=== PATIENT | male | born 1970 | race Caucasian/White ===

== ENCOUNTER 2020-02-20 16:44 | Inpatient (IN) | payer MEDICAID, OTHER ==
[~2020-02-20] VITALS: Ht 167.6 cm; Wt 120.6 kg
[~2020-02-20 16:44] MED LIST: AMLO10TA7 PO; METF1000 PO; [UNRECOGNIZED DRUG - OTHER]
[2020-02-20] MEDS ORDERED: FLUO-191 PO (16:53)
[2020-02-20] MEDS ORDERED: ASPI-728 PO (16:53)
[2020-02-20] MEDS ORDERED: METO25 PO (16:53)
[2020-02-20] MEDS ORDERED: LEVO100 PO (16:53)
[2020-02-20] MEDS ORDERED: TAMS-13 PO (16:53)
[2020-02-20] MEDS ORDERED: LISI-662 PO (16:53)
[2020-02-20] MEDS ORDERED: DIVA-76 PO (16:53)
[2020-02-20] MEDS ORDERED: ROSU20TA23 PO (16:53)
[2020-02-20] MEDS ORDERED: EMPA25TA PO (16:53)
[2020-02-20] MEDS ORDERED: CETI-450 PO (16:53)
[2020-02-20] MEDS ORDERED: GABA-1181 PO (16:53)
[2020-02-20] MEDS ORDERED: OMEP20 PO (16:53)
[2020-02-20] MEDS ORDERED: TRAZ150 PO (16:53)
[2020-02-20 18:24] LABS: BASOPHILS % (AUTO) 0.8 % (0.0-2.0); EOSINOPHILS % (AUTO) 3.7 % (1.0-6.0); HEMATOCRIT 38.2 % (41-53); HEMOGLOBIN 12.9 g/dL (13.5-17.5); LYMPHOCYTES % (AUTO) 37.2 % (22.0-44.0); MEAN CORPUSCULAR HEMOGLOBIN 29.2 pg (26.0-34.0); MEAN CORPUSCULAR HGB CONC 33.8 G/dL (31.0-37.0); MEAN CORPUSCULAR VOLUME 86 fL (80-100); MONOCYTES # (AUTO) 0.5 K/uL (0.1-1.0); MONOCYTES % (AUTO) 6.3 % (2.0-9.0); NEUTROPHILS # (AUTO) 4.1 K/uL (1.8-7.7); PLATELET COUNT (AUTO) 189 K/uL (150-450); RED BLOOD CELL COUNT(AUTO) 4.42 MIL/uL (4.50-5.90); RED CELL DISTRIBUTION WIDTH 14.8 % (11.5-14.5)
[2020-02-20 18:29] LABS: ANION GAP 7 mmol/L (8-16); CALCIUM, TOTAL 8.4 mg/dL (8.8-10.5); CARBON DIOXIDE 27 mmol/L (22-29); CHLORIDE 106 mmol/L (98-107); CREATININE 1.21 mg/dL (0.60-1.30); GLOMERULAR FILTR. RATE CALC > 60 mL/min (>60); GLUCOSE,RANDOM 198 mg/dL (70-110); POTASSIUM 3.9 mmol/L (3.5-5.1); SODIUM SERUM 140 mmol/L (136-145); UREA NITROGEN, BLOOD 24 mg/dL (7-18)
[2020-02-20 18:33] LABS: APPEARANCE,URINE CLEAR (CLEAR); BILIRUBIN,URINE NEGATIVE (NEGATIVE); GLUCOSE, URINE (UA) >=1000 mg/dL (NEGATIVE); KETONES,URINE NEGATIVE (NEGATIVE); LEUKOCYTE ESTERASE ,URINE NEGATIVE (NEGATIVE); NITRATE,URINE NEGATIVE (NEGATIVE); OCCULT BLOOD,URINE NEGATIVE (NEGATIVE); PH,URINE 5.5 (5.0-8.0); PROTEIN,URINE NEGATIVE (NEGATIVE)
[2020-02-20 18:35] LABS: ALANINE AMINOTRANSFERASE 43 U/L (12-78); ALBUMIN 3.3 g/dL (3.4-5.0); ALKALINE PHOSPHATASE 116 U/L (46-116); ASPARTATE AMINOTRANSFERASE 16 U/L (15-37); TOTAL PROTEIN, SERUM 6.1 g/dL (6.4-8.2)
[2020-02-20 18:37] LABS: AMPHET/METH SCREEN,URINE NEGATIVE (NEGATIVE); BARBITURATE SCREEN, URINE NEGATIVE (NEGATIVE); BENZODIAZEPINES SCREEN,URINE NEGATIVE (NEGATIVE); CANNABINOID SCREEN,URINE NEGATIVE (NEGATIVE); COCAINE SCREEN,URINE NEGATIVE (NEGATIVE); OPIATE SCREEN,URINE NEGATIVE (NEGATIVE)
[2020-02-20 18:58] LABS: BACTERIA,URINE None Seen /HPF (None Seen); PHENCYCLIDINE SCREEN,URINE NEGATIVE (NEGATIVE); RBC,URINE None Seen /HPF (0-2); WBC,URINE None Seen /HPF (0-5)
[2020-02-20 19:06] LABS: METHADONE SCREEN, URINE NEGATIVE (NEGATIVE)
[2020-02-20] MEDS: ZOLPIDEM TARTRATE 10 MG TABLET PO PRN (23:50)
[2020-02-21 00:48] VITALS: BP 117/72
[2020-02-21 05:41] LABS: GLUCOMETER DEV NAME(LOC) 3E.I 2; GLUCOSE,POINT OF CARE 106 MG/DL (70-110)
[2020-02-21] MEDS ORDERED: GuaiFENesin/D-METHORPHAN [SUGAR-FREE] 200-20MG/10 ML SYRUP UDCUP PO PRN (08:45)
[2020-02-21] MEDS ORDERED: PETROLATUM,WHITE 28 GM JELLY TP PRN (08:45)
[2020-02-21] MEDS ORDERED: LOPERAMIDE HCL 2 MG CAPSULE PO PRN (08:45)
[2020-02-21] MEDS ORDERED: ACETAMINOPHEN 325 MG TABLET PO PRN (08:45)
[2020-02-21] MEDS ORDERED: NICOTINE 14 MG/24 HOUR PATCH TD PRN (08:45)
[2020-02-21] MEDS ORDERED: MAG HYDROX/AL HYDROX/SIMETH ES 30 ML SUSPENSION UDCUP PO PRN (08:45)
[2020-02-21] MEDS ORDERED: ONDANSETRON HCL 4 MG TABLET PO PRN (08:45)
[2020-02-21] MEDS ORDERED: CloNIDine HCL 0.1 MG TABLET PO PRN (08:45)
[2020-02-21] MEDS ORDERED: ALBUTEROL SULFATE HFA 90 MCG/PUFF 8 GM INHALER IH PRN (08:45)
[2020-02-21] MEDS ORDERED: DOCUSATE SODIUM 100 MG CAPSULE PO PRN (08:45)
[2020-02-21] MEDS ORDERED: MAGNESIUM HYDROXIDE SUSPENSION 30 ML UDCUP PO PRN (08:45)
[2020-02-21] MEDS: LEVOTHYROXINE SODIUM 100 MCG TABLET PO SCH (10:03)
[2020-02-21] MEDS: ROSUVASTATIN CALCIUM 20 MG TABLET PO SCH (10:04)
[2020-02-21] MEDS: MetFORMIN HCL 500 MG TABLET PO SCH ×2 (10:04→16:23)
[2020-02-21 10:26] VITALS: BP 93/55
[2020-02-21 10:28] VITALS: BP 93/55
[2020-02-21] MEDS: GABAPENTIN 300 MG CAPSULE PO SCH ×2 (13:19→16:23)
[2020-02-21] MEDS: DIVALPROEX SODIUM 250 MG DR TABLET PO SCH (16:22)
[2020-02-21 16:50] VITALS: BP 107/65
[2020-02-21] MEDS: ZOLPIDEM TARTRATE 10 MG TABLET PO PRN (21:23)
[2020-02-21] MEDS: IBUPROFEN 400 MG TABLET PO PRN (21:23)
[2020-02-21 22:20] VITALS: BP 118/82
[2020-02-21 22:23] VITALS: BP 124/78
[2020-02-22] MEDS ORDERED: PNEUMOCOCCAL VACCINE POLYVALENT 0.5 ML VIAL [PPSV23] IM ONE (04:00)
[2020-02-22 07:39] LABS: CHOL/HDL RATIO 2.7 (4.2-7.3)
[2020-02-22] MEDS: FLUoxetine HCL 20 MG CAPSULE PO SCH (08:46)
[2020-02-22] MEDS: DIVALPROEX SODIUM 250 MG DR TABLET PO SCH (08:46)
[2020-02-22] MEDS: GABAPENTIN 300 MG CAPSULE PO SCH ×3 (08:46→16:04)
[2020-02-22] MEDS: MetFORMIN HCL 500 MG TABLET PO SCH ×2 (08:47→16:04)
[2020-02-22] MEDS: ROSUVASTATIN CALCIUM 20 MG TABLET PO SCH (08:47)
[2020-02-22] MEDS: LEVOTHYROXINE SODIUM 100 MCG TABLET PO SCH (08:47)
[2020-02-22 08:57] VITALS: BP 127/76
[2020-02-22] MEDS: DIVALPROEX SODIUM 500 MG ER TABLET PO SCH (16:04)
[2020-02-22 17:00] VITALS: BP 150/76
[2020-02-22 21:25] VITALS: BP 136/84
[2020-02-22] MEDS: IBUPROFEN 400 MG TABLET PO PRN (21:28)
[2020-02-22] MEDS: ZOLPIDEM TARTRATE 10 MG TABLET PO PRN (21:28)
[2020-02-22 22:28] VITALS: BP 140/80
[2020-02-23 02:48] VITALS: BP 140/76
[2020-02-23] MEDS: LORazepam 2 MG TABLET PO PRN ×2 (02:48→18:47)
[2020-02-23] MEDS: MetFORMIN HCL 500 MG TABLET PO SCH ×2 (08:40→16:19)
[2020-02-23] MEDS: FLUoxetine HCL 20 MG CAPSULE PO SCH (08:40)
[2020-02-23] MEDS: DIVALPROEX SODIUM 500 MG ER TABLET PO SCH ×2 (08:40→16:19)
[2020-02-23] MEDS: LEVOTHYROXINE SODIUM 100 MCG TABLET PO SCH (08:41)
[2020-02-23] MEDS: ROSUVASTATIN CALCIUM 20 MG TABLET PO SCH (08:41)
[2020-02-23] MEDS: GABAPENTIN 300 MG CAPSULE PO SCH ×3 (08:41→16:19)
[2020-02-23 09:22] VITALS: BP 126/80
[2020-02-23 17:00] VITALS: BP 113/64
[2020-02-23] MEDS ORDERED: METF-960 PO (18:25)
[2020-02-23] MEDS: HALOPERIDOL 5 MG TABLET PO PRN (18:47)
[2020-02-23] MEDS: TraZODone HCL 50 MG TABLET PO SCH (20:12)
[2020-02-23 20:55] VITALS: BP 131/78
[2020-02-23] MEDS: IBUPROFEN 400 MG TABLET PO PRN (20:57)
[2020-02-24] MEDS: DIVALPROEX SODIUM 500 MG ER TABLET PO SCH ×2 (08:46→16:48)
[2020-02-24] MEDS: MetFORMIN HCL 500 MG TABLET PO SCH ×2 (08:46→16:48)
[2020-02-24] MEDS: GABAPENTIN 300 MG CAPSULE PO SCH ×3 (08:47→16:48)
[2020-02-24] MEDS: MULTIVITAMINS WITH MINERALS, THERAPEUTIC TABLET PO SCH (08:47)
[2020-02-24] MEDS: FLUoxetine HCL 20 MG CAPSULE PO SCH (08:47)
[2020-02-24] MEDS: LEVOTHYROXINE SODIUM 100 MCG TABLET PO SCH (08:47)
[2020-02-24] MEDS: ROSUVASTATIN CALCIUM 20 MG TABLET PO SCH (08:48)
[2020-02-24 09:11] VITALS: BP 106/52
[2020-02-24] MEDS: LORazepam 2 MG TABLET PO PRN (12:06)
[2020-02-24 19:51] VITALS: BP 116/69
[2020-02-24] MEDS: TraZODone HCL 50 MG TABLET PO SCH (20:22)
[2020-02-24] MEDS: CIPROFLOXACIN HCL 0.3% 2.5 ML OPHTHALMIC SOLUTION OS SCH (20:22)
[2020-02-25] MEDS: HALOPERIDOL 5 MG TABLET PO PRN (00:33)
[2020-02-25] MEDS: LORazepam 2 MG TABLET PO PRN ×3 (00:33→18:23)
[2020-02-25] MEDS: DIVALPROEX SODIUM 500 MG ER TABLET PO SCH ×2 (08:23→16:48)
[2020-02-25] MEDS: MetFORMIN HCL 500 MG TABLET PO SCH ×2 (08:23→16:49)
[2020-02-25] MEDS: GABAPENTIN 300 MG CAPSULE PO SCH ×3 (08:23→16:49)
[2020-02-25] MEDS: LEVOTHYROXINE SODIUM 100 MCG TABLET PO SCH (08:23)
[2020-02-25] MEDS: MULTIVITAMINS WITH MINERALS, THERAPEUTIC TABLET PO SCH (08:23)
[2020-02-25] MEDS: ROSUVASTATIN CALCIUM 20 MG TABLET PO SCH (08:24)
[2020-02-25] MEDS: FLUoxetine HCL 20 MG CAPSULE PO SCH (08:24)
[2020-02-25] MEDS: CIPROFLOXACIN HCL 0.3% 2.5 ML OPHTHALMIC SOLUTION OS SCH ×3 (08:24→20:52)
[2020-02-25 08:50] VITALS: BP 126/72
[2020-02-25 19:34] VITALS: BP 116/51
[2020-02-25] MEDS: TraZODone HCL 50 MG TABLET PO SCH (20:52)
[2020-02-26] MEDS: LORazepam 2 MG TABLET PO PRN ×2 (08:07→20:35)
[2020-02-26] MEDS: MetFORMIN HCL 500 MG TABLET PO SCH ×2 (08:07→16:22)
[2020-02-26] MEDS: MULTIVITAMINS WITH MINERALS, THERAPEUTIC TABLET PO SCH (08:08)
[2020-02-26] MEDS: FLUoxetine HCL 20 MG CAPSULE PO SCH (08:08)
[2020-02-26] MEDS: DIVALPROEX SODIUM 500 MG ER TABLET PO SCH ×2 (08:08→16:22)
[2020-02-26] MEDS: LEVOTHYROXINE SODIUM 100 MCG TABLET PO SCH (08:08)
[2020-02-26] MEDS: GABAPENTIN 300 MG CAPSULE PO SCH ×3 (08:08→16:22)
[2020-02-26] MEDS: CIPROFLOXACIN HCL 0.3% 2.5 ML OPHTHALMIC SOLUTION OS SCH ×3 (08:09→20:26)
[2020-02-26] MEDS: ROSUVASTATIN CALCIUM 20 MG TABLET PO SCH (08:09)
[2020-02-26 08:54] VITALS: BP 109/80
[2020-02-26 17:14] VITALS: BP 119/63
[2020-02-26] MEDS: TraZODone HCL 50 MG TABLET PO SCH (20:26)
[2020-02-27] MEDS: CIPROFLOXACIN HCL 0.3% 2.5 ML OPHTHALMIC SOLUTION OS SCH (08:04)
[2020-02-27] MEDS: FLUoxetine HCL 20 MG CAPSULE PO SCH (08:04)
[2020-02-27] MEDS: MULTIVITAMINS WITH MINERALS, THERAPEUTIC TABLET PO SCH (08:04)
[2020-02-27] MEDS: MetFORMIN HCL 500 MG TABLET PO SCH (08:04)
[2020-02-27] MEDS: LEVOTHYROXINE SODIUM 100 MCG TABLET PO SCH (08:04)
[2020-02-27] MEDS: GABAPENTIN 300 MG CAPSULE PO SCH ×2 (08:04→12:09)
[2020-02-27] MEDS: DIVALPROEX SODIUM 500 MG ER TABLET PO SCH (08:04)
[2020-02-27] MEDS: ROSUVASTATIN CALCIUM 20 MG TABLET PO SCH (08:05)
[2020-02-27] MEDS: LORazepam 2 MG TABLET PO PRN (08:10)
[2020-02-27 09:05] VITALS: BP 140/77
[2020-02-27] MEDS ORDERED: DIVA500T52 PO (12:46)
[2020-02-27] MEDS ORDERED: TRAZ-252 PO (12:46)
[2020-02-27] MEDS ORDERED: MULT-1239 PO (12:53)
[2020-02-27] MEDS ORDERED: METF-960 PO (13:03)
[2020-02-27] MEDS ORDERED: CILO2.5OS OS (13:03)
== END 2020-02-27 11:10 | disposition home or self-care (01) | DRG 885 ==
LOC: EMS 16:46 → 3EI 21:37 → EMS 02-21 00:06
PROVIDERS: ADMIT Psychiatry & Neurology Psychiatry; ATTEND Psychiatry & Neurology Psychiatry
DX: F25.1 Schizoaffective disorder, depressive type (principal); R45.851 Suicidal ideations; E78.00 Pure hypercholesterolemia, unspecified; E78.5 Hyperlipidemia, unspecified; F17.200 Nicotine dependence, unspecified, uncomplicated; F31.9 Bipolar disorder, unspecified; F41.0 Panic disorder [episodic paroxysmal anxiety]; E66.9 Obesity, unspecified; E11.9 Type 2 diabetes mellitus without complications; E03.9 Hypothyroidism, unspecified; G47.33 Obstructive sleep apnea (adult) (pediatric); I10 Essential (primary) hypertension; J45.909 Unspecified asthma, uncomplicated; K59.00 Constipation, unspecified; M10.9 Gout, unspecified; N40.0 Benign prostatic hyperplasia without lower urinary tract symptoms; Z59.0 Homelessness; Z79.899 Other long term (current) drug therapy; Z91.5 Personal history of self-harm
CPT/HCPCS: G0480

== ENCOUNTER 2020-10-19 22:40 | Inpatient (IN) | payer MEDICAID, OTHER ==
[~2020-10-19] VITALS: Ht 167.6 cm; Wt 114.4 kg
[~2020-10-19 22:40] MED LIST changes: -AMLO10TA7 PO; +CILO2.5OS OS; +DIVA-80 PO; +FLUO-191 PO; +GABA-1181 PO; +LEVO100 PO; +METF-960 PO; -METF1000 PO; +MULT-1239 PO; +ROSU20TA23 PO; +TRAZ-252 PO; -[UNRECOGNIZED DRUG - OTHER]
[2020-10-19 23:51] LABS: BASOPHILS % (AUTO) 0.7 % (0.0-2.0); EOSINOPHILS % (AUTO) 11.1 % (1.0-6.0); HEMATOCRIT 42.7 % (41-53); HEMOGLOBIN 14.3 g/dL (13.5-17.5); LYMPHOCYTES # (AUTO) 3.3 K/uL (1.0-4.8); LYMPHOCYTES % (AUTO) 34.2 % (22.0-44.0); MEAN CORPUSCULAR HEMOGLOBIN 29.4 pg (26.0-34.0); MEAN CORPUSCULAR HGB CONC 33.5 G/dL (31.0-37.0); MEAN CORPUSCULAR VOLUME 88 fL (80-100); MONOCYTES # (AUTO) 0.6 K/uL (0.1-1.0); MONOCYTES % (AUTO) 6.5 % (2.0-9.0); NEUTROPHILS # (AUTO) 4.5 K/uL (1.8-7.7); NEUTROPHILS % (AUTO) 47.5 % (40.0-70.0); PLATELET COUNT (AUTO) 164 K/uL (150-450); RED BLOOD CELL COUNT(AUTO) 4.87 MIL/uL (4.50-5.90); RED CELL DISTRIBUTION WIDTH 13.9 % (11.5-14.5)
[2020-10-20 00:01] LABS: ANION GAP 15 mmol/L (8-16); CALCIUM, TOTAL 8.6 mg/dL (8.8-10.5); CARBON DIOXIDE 20 mmol/L (22-29); CHLORIDE 107 mmol/L (98-107); CREATININE 1.25 mg/dL (0.60-1.30); GLOMERULAR FILTR. RATE CALC > 60 mL/min (>60); GLUCOSE,RANDOM 111 mg/dL (70-110); SODIUM SERUM 142 mmol/L (136-145); UREA NITROGEN, BLOOD 18 mg/dL (7-18)
[2020-10-20 00:07] LABS: ALANINE AMINOTRANSFERASE 36 U/L (12-78); ALBUMIN 3.4 g/dL (3.4-5.0); ALKALINE PHOSPHATASE 120 U/L (46-116); ASPARTATE AMINOTRANSFERASE 21 U/L (15-37); BILIRUBIN,TOTAL 0.8 mg/dL (0.1-1.0); TOTAL PROTEIN, SERUM 6.7 g/dL (6.4-8.2)
[2020-10-20 00:25] LABS: ACETAMINOPHEN < 2 mcg/mL (10-30); SALICYLATE < 2.8 mg/dL (2.8-20.0)
[2020-10-20] MEDS ORDERED: SODIUM CHLORIDE 0.9% 1,000 ML IV ONE ×3 (01:00→11:45)
[2020-10-20 01:26] LABS: GLUCOSE,POINT OF CARE 100 MG/DL (70-110)
[2020-10-20 02:11] LABS: LACTIC ACID 3.1 mmol/L (0.4-2.0)
[2020-10-20 03:45] LABS: GLUCOSE,POINT OF CARE 91 MG/DL (70-110)
[2020-10-20 04:37] LABS: CALCIUM, TOTAL 8.7 mg/dL (8.8-10.5); CREATININE 1.3 mg/dL (0.60-1.30)
[2020-10-20 04:43] LABS: BILIRUBIN,TOTAL 0.8 mg/dL (0.1-1.0); TOTAL PROTEIN, SERUM 6.4 g/dL (6.4-8.2)
[2020-10-20 05:21] LABS: AMPHET/METH SCREEN,URINE NEGATIVE (NEGATIVE); BARBITURATE SCREEN, URINE NEGATIVE (NEGATIVE); BENZODIAZEPINES SCREEN,URINE NEGATIVE (NEGATIVE); CANNABINOID SCREEN,URINE NEGATIVE (NEGATIVE); COCAINE SCREEN,URINE NEGATIVE (NEGATIVE); METHADONE SCREEN, URINE NEGATIVE (NEGATIVE); OPIATE SCREEN,URINE NEGATIVE (NEGATIVE)
[2020-10-20 05:23] LABS: PHENCYCLIDINE SCREEN,URINE NEGATIVE (NEGATIVE)
[2020-10-20 07:00] LABS: COVID AG,FIA SOURCE NASOPHARYNGEAL
[2020-10-20 09:23] LABS: GLUCOSE,POINT OF CARE 72 MG/DL (70-110)
[2020-10-20 10:03] LABS: ANION GAP 8 mmol/L (8-16); CALCIUM, TOTAL 7.5 mg/dL (8.8-10.5); CARBON DIOXIDE 25 mmol/L (22-29); CHLORIDE 109 mmol/L (98-107); CREATININE 1.25 mg/dL (0.60-1.30); GLOMERULAR FILTR. RATE CALC > 60 mL/min (>60); GLUCOSE,RANDOM 77 mg/dL (70-110); POTASSIUM 4.6 mmol/L (3.5-5.1); SODIUM SERUM 142 mmol/L (136-145); UREA NITROGEN, BLOOD 16 mg/dL (7-18)
[2020-10-20 10:09] LABS: ALANINE AMINOTRANSFERASE 29 U/L (12-78); ALBUMIN 2.9 g/dL (3.4-5.0); ALKALINE PHOSPHATASE 107 U/L (46-116); ASPARTATE AMINOTRANSFERASE 18 U/L (15-37); BILIRUBIN,TOTAL 0.8 mg/dL (0.1-1.0); TOTAL PROTEIN, SERUM 5.8 g/dL (6.4-8.2)
[2020-10-20 15:25] LABS: GLUCOSE,POINT OF CARE 63 MG/DL (70-110)
[2020-10-20 15:45] LABS: GLUCOSE,POINT OF CARE 86 MG/DL (70-110)
[2020-10-20 20:38] VITALS: BP 142/96
[2020-10-21] MEDS: LEVOTHYROXINE SODIUM 100 MCG TABLET PO SCH (07:01)
[2020-10-21 07:22] LABS: CHOL/HDL RATIO 2.4 (4.2-7.3)
[2020-10-21] MEDS ORDERED: DOCUSATE SODIUM 100 MG CAPSULE PO PRN (07:45)
[2020-10-21] MEDS ORDERED: GuaiFENesin/D-METHORPHAN [SUGAR-FREE] 200-20MG/10 ML SYRUP UDCUP PO PRN (07:45)
[2020-10-21] MEDS ORDERED: ACETAMINOPHEN 325 MG TABLET PO PRN (07:45)
[2020-10-21] MEDS ORDERED: CloNIDine HCL 0.1 MG TABLET PO PRN (07:45)
[2020-10-21] MEDS ORDERED: MAGNESIUM HYDROXIDE SUSPENSION 30 ML UDCUP PO PRN (07:45)
[2020-10-21] MEDS ORDERED: PETROLATUM,WHITE 28 GM JELLY TP PRN (07:45)
[2020-10-21] MEDS ORDERED: ALBUTEROL SULFATE HFA 90 MCG/PUFF 8 GM INHALER IH PRN (07:45)
[2020-10-21] MEDS ORDERED: NICOTINE 14 MG/24 HOUR PATCH TD PRN (07:45)
[2020-10-21] MEDS ORDERED: MAG HYDROX/AL HYDROX/SIMETH ES 30 ML SUSPENSION UDCUP PO PRN (07:45)
[2020-10-21] MEDS ORDERED: ONDANSETRON HCL 4 MG TABLET PO PRN (07:45)
[2020-10-21] MEDS ORDERED: LOPERAMIDE HCL 2 MG CAPSULE PO PRN (07:45)
[2020-10-21] MEDS: MULTIVITAMINS WITH MINERALS, THERAPEUTIC TABLET PO SCH (08:34)
[2020-10-21] MEDS: MetFORMIN HCL 500 MG TABLET PO SCH ×2 (08:34→16:19)
[2020-10-21] MEDS: ROSUVASTATIN CALCIUM 20 MG TABLET PO SCH (08:34)
[2020-10-21 09:22] VITALS: BP 139/80
[2020-10-21] MEDS ORDERED: LISI-618 PO (11:30)
[2020-10-21] MEDS ORDERED: METO-391 PO (11:30)
[2020-10-21] MEDS ORDERED: EMPA25TA PO (11:30)
[2020-10-21] MEDS ORDERED: DULA3PEN SQ (11:30)
[2020-10-21] MEDS: GABAPENTIN 300 MG CAPSULE PO SCH ×2 (12:02→16:18)
[2020-10-21] MEDS: DIVALPROEX SODIUM 500 MG ER TABLET PO SCH ×2 (12:02→20:24)
[2020-10-21] MEDS: FLUoxetine HCL 20 MG CAPSULE PO SCH (12:02)
[2020-10-21 16:00] VITALS: BP 122/76
[2020-10-21] MEDS ORDERED: DEXTROSE 50%-WATER 25 GM/50 ML SYRINGE IVP PRN (16:00)
[2020-10-21 17:03] LABS: GLUCOMETER DEV NAME(LOC) 3E.I 2; GLUCOSE,POINT OF CARE 90 MG/DL (70-110)
[2020-10-21] MEDS: TraZODone HCL 50 MG TABLET PO SCH (20:24)
[2020-10-21 20:39] LABS: GLUCOMETER DEV NAME(LOC) 3E.I 2; GLUCOSE,POINT OF CARE 97 MG/DL (70-110)
[2020-10-21] MEDS: ZOLPIDEM TARTRATE 10 MG TABLET PO PRN (22:48)
[2020-10-22 03:00] LABS: APPEARANCE,URINE CLEAR (CLEAR); BILIRUBIN,URINE NEGATIVE (NEGATIVE); GLUCOSE, URINE (UA) >=1000 mg/dL (NEGATIVE); KETONES,URINE 15 mg/dL (NEGATIVE); LEUKOCYTE ESTERASE ,URINE NEGATIVE (NEGATIVE); NITRATE,URINE NEGATIVE (NEGATIVE); OCCULT BLOOD,URINE NEGATIVE (NEGATIVE); PROTEIN,URINE POS 1+ (NEGATIVE)
[2020-10-22 03:22] LABS: BACTERIA,URINE Rare /HPF (None Seen); WBC,URINE 0-2 /HPF (0-5); YEAST,URINE Few /HPF (None Seen)
[2020-10-22 03:23] LABS: RBC,URINE None Seen /HPF (0-2); SQUAMOUS EPITHELIAL CELL,UR Rare /LPF (None Seen)
[2020-10-22 04:51] LABS: AMPHET/METH SCREEN,URINE NEGATIVE (NEGATIVE); BARBITURATE SCREEN, URINE NEGATIVE (NEGATIVE); BENZODIAZEPINES SCREEN,URINE NEGATIVE (NEGATIVE); CANNABINOID SCREEN,URINE NEGATIVE (NEGATIVE); COCAINE SCREEN,URINE NEGATIVE (NEGATIVE); METHADONE SCREEN, URINE NEGATIVE (NEGATIVE); OPIATE SCREEN,URINE NEGATIVE (NEGATIVE)
[2020-10-22 05:05] LABS: PHENCYCLIDINE SCREEN,URINE NEGATIVE (NEGATIVE)
[2020-10-22 06:42] LABS: GLUCOMETER DEV NAME(LOC) 3E.I 2; GLUCOSE,POINT OF CARE 83 MG/DL (70-110)
[2020-10-22] MEDS: LEVOTHYROXINE SODIUM 100 MCG TABLET PO SCH (06:44)
[2020-10-22 09:36] VITALS: BP 139/83
[2020-10-22] MEDS: ROSUVASTATIN CALCIUM 20 MG TABLET PO SCH (09:44)
[2020-10-22] MEDS: GABAPENTIN 300 MG CAPSULE PO SCH ×3 (09:44→16:35)
[2020-10-22] MEDS: DIVALPROEX SODIUM 500 MG ER TABLET PO SCH ×2 (09:44→20:44)
[2020-10-22] MEDS: FLUoxetine HCL 20 MG CAPSULE PO SCH (09:45)
[2020-10-22] MEDS: MULTIVITAMINS WITH MINERALS, THERAPEUTIC TABLET PO SCH (09:45)
[2020-10-22] MEDS: MetFORMIN HCL 500 MG TABLET PO SCH ×2 (09:47→17:07)
[2020-10-22 11:49] LABS: GLUCOMETER DEV NAME(LOC) 3E.I 2; GLUCOSE,POINT OF CARE 106 MG/DL (70-110)
[2020-10-22 16:25] VITALS: BP 108/70
[2020-10-22 17:22] LABS: GLUCOMETER DEV NAME(LOC) 3E.I 2; GLUCOSE,POINT OF CARE 107 MG/DL (70-110)
[2020-10-22] MEDS: TraZODone HCL 50 MG TABLET PO SCH (20:44)
[2020-10-22] MEDS: IBUPROFEN 400 MG TABLET PO PRN (20:49)
[2020-10-22 20:59] LABS: GLUCOMETER DEV NAME(LOC) 3E.I 2; GLUCOSE,POINT OF CARE 109 MG/DL (70-110)
[2020-10-22] MEDS: ZOLPIDEM TARTRATE 10 MG TABLET PO PRN (22:15)
[2020-10-23 06:21] VITALS: BP 124/77
[2020-10-23] MEDS: IBUPROFEN 400 MG TABLET PO PRN ×2 (06:25→21:40)
[2020-10-23] MEDS: LEVOTHYROXINE SODIUM 100 MCG TABLET PO SCH (06:25)
[2020-10-23 06:40] LABS: GLUCOMETER DEV NAME(LOC) 3E.I 2; GLUCOSE,POINT OF CARE 73 MG/DL (70-110)
[2020-10-23 08:03] VITALS: BP 104/65
[2020-10-23] MEDS: MetFORMIN HCL 500 MG TABLET PO SCH ×2 (08:52→16:32)
[2020-10-23] MEDS: ROSUVASTATIN CALCIUM 20 MG TABLET PO SCH (08:52)
[2020-10-23] MEDS: MULTIVITAMINS WITH MINERALS, THERAPEUTIC TABLET PO SCH (08:52)
[2020-10-23] MEDS: GABAPENTIN 300 MG CAPSULE PO SCH ×3 (08:52→16:32)
[2020-10-23] MEDS: DIVALPROEX SODIUM 500 MG ER TABLET PO SCH ×2 (08:53→21:19)
[2020-10-23] MEDS: FLUoxetine HCL 20 MG CAPSULE PO SCH (08:58)
[2020-10-23 11:33] LABS: GLUCOMETER DEV NAME(LOC) 3EX.; GLUCOSE,POINT OF CARE 94 MG/DL (70-110)
[2020-10-23 16:00] VITALS: BP 113/66
[2020-10-23] MEDS: LORazepam 2 MG TABLET PO PRN (16:32)
[2020-10-23 16:47] LABS: GLUCOMETER DEV NAME(LOC) 3EX.; GLUCOSE,POINT OF CARE 134 MG/DL (70-110)
[2020-10-23] MEDS: TraZODone HCL 50 MG TABLET PO SCH (21:34)
[2020-10-23 21:40] VITALS: BP 154/85
[2020-10-23] MEDS: ZOLPIDEM TARTRATE 10 MG TABLET PO PRN (21:42)
[2020-10-23 22:20] LABS: GLUCOMETER DEV NAME(LOC) 3EX.; GLUCOSE,POINT OF CARE 80 MG/DL (70-110)
[2020-10-24 06:30] LABS: GLUCOMETER DEV NAME(LOC) 3EX.; GLUCOSE,POINT OF CARE 115 MG/DL (70-110)
[2020-10-24] MEDS: LEVOTHYROXINE SODIUM 100 MCG TABLET PO SCH (06:59)
[2020-10-24 08:22] VITALS: BP 109/67
[2020-10-24] MEDS: MULTIVITAMINS WITH MINERALS, THERAPEUTIC TABLET PO SCH (09:21)
[2020-10-24] MEDS: MetFORMIN HCL 500 MG TABLET PO SCH ×2 (09:21→17:18)
[2020-10-24] MEDS: GABAPENTIN 300 MG CAPSULE PO SCH ×3 (09:21→17:18)
[2020-10-24] MEDS: DIVALPROEX SODIUM 500 MG ER TABLET PO SCH ×2 (09:22→20:41)
[2020-10-24] MEDS: ROSUVASTATIN CALCIUM 20 MG TABLET PO SCH (09:22)
[2020-10-24] MEDS: FLUoxetine HCL 20 MG CAPSULE PO SCH (09:22)
[2020-10-24 11:24] LABS: GLUCOMETER DEV NAME(LOC) 3EX.; GLUCOSE,POINT OF CARE 98 MG/DL (70-110)
[2020-10-24] MEDS: LORazepam 2 MG TABLET PO PRN (12:00)
[2020-10-24 16:14] VITALS: BP 116/78
[2020-10-24 16:57] LABS: GLUCOMETER DEV NAME(LOC) 3EX.; GLUCOSE,POINT OF CARE 151 MG/DL (70-110)
[2020-10-24] MEDS: INSULIN LISPRO 100 UNITS/ML SQ PRN (17:15)
[2020-10-24 20:41] LABS: GLUCOMETER DEV NAME(LOC) 3EX.; GLUCOSE,POINT OF CARE 140 MG/DL (70-110)
[2020-10-24] MEDS: TraZODone HCL 50 MG TABLET PO SCH (20:41)
[2020-10-24 22:29] VITALS: BP 139/87
[2020-10-24] MEDS: ZOLPIDEM TARTRATE 10 MG TABLET PO PRN (22:32)
[2020-10-24] MEDS: IBUPROFEN 400 MG TABLET PO PRN (22:33)
[2020-10-25 03:01] VITALS: BP 138/91
[2020-10-25] MEDS: LORazepam 2 MG TABLET PO PRN ×2 (03:03→22:50)
[2020-10-25] MEDS: INSULIN LISPRO 100 UNITS/ML SQ PRN ×3 (06:41→21:29)
[2020-10-25] MEDS: LEVOTHYROXINE SODIUM 100 MCG TABLET PO SCH (06:41)
[2020-10-25 06:42] LABS: GLUCOMETER DEV NAME(LOC) 3EX.; GLUCOSE,POINT OF CARE 122 MG/DL (70-110)
[2020-10-25 08:55] VITALS: BP 138/77
[2020-10-25] MEDS: FLUoxetine HCL 20 MG CAPSULE PO SCH (08:57)
[2020-10-25] MEDS: MULTIVITAMINS WITH MINERALS, THERAPEUTIC TABLET PO SCH (08:57)
[2020-10-25] MEDS: GABAPENTIN 300 MG CAPSULE PO SCH ×3 (08:57→16:55)
[2020-10-25] MEDS: DIVALPROEX SODIUM 500 MG ER TABLET PO SCH ×2 (08:58→20:15)
[2020-10-25] MEDS: MetFORMIN HCL 500 MG TABLET PO SCH ×2 (08:58→16:55)
[2020-10-25] MEDS: ROSUVASTATIN CALCIUM 20 MG TABLET PO SCH (08:58)
[2020-10-25] MEDS: IBUPROFEN 400 MG TABLET PO PRN (08:59)
[2020-10-25 11:20] LABS: GLUCOMETER DEV NAME(LOC) 3E.I 2; GLUCOSE,POINT OF CARE 98 MG/DL (70-110)
[2020-10-25 16:10] VITALS: BP 120/98
[2020-10-25 17:20] LABS: COVID AG,FIA SOURCE NASOPHARYNGEAL
[2020-10-25 17:25] LABS: GLUCOMETER DEV NAME(LOC) 3EX.; GLUCOSE,POINT OF CARE 162 MG/DL (70-110)
[2020-10-25] MEDS: TraZODone HCL 50 MG TABLET PO SCH (20:15)
[2020-10-25 21:45] LABS: GLUCOMETER DEV NAME(LOC) 3E.I 2; GLUCOSE,POINT OF CARE 158 MG/DL (70-110)
[2020-10-25] MEDS: ZOLPIDEM TARTRATE 10 MG TABLET PO PRN (22:50)
[2020-10-26 05:33] LABS: GLUCOMETER DEV NAME(LOC) 3E.I 2; GLUCOSE,POINT OF CARE 95 MG/DL (70-110)
[2020-10-26] MEDS: LEVOTHYROXINE SODIUM 100 MCG TABLET PO SCH (06:50)
[2020-10-26] MEDS: INSULIN LISPRO 100 UNITS/ML SQ PRN (06:51)
[2020-10-26 08:17] VITALS: BP 131/85
[2020-10-26] MEDS: FLUoxetine HCL 20 MG CAPSULE PO SCH (08:44)
[2020-10-26] MEDS: ROSUVASTATIN CALCIUM 20 MG TABLET PO SCH (08:44)
[2020-10-26] MEDS: GABAPENTIN 300 MG CAPSULE PO SCH ×3 (08:45→16:02)
[2020-10-26] MEDS: MULTIVITAMINS WITH MINERALS, THERAPEUTIC TABLET PO SCH (08:45)
[2020-10-26] MEDS: DIVALPROEX SODIUM 500 MG ER TABLET PO SCH ×2 (08:45→20:29)
[2020-10-26] MEDS: MetFORMIN HCL 500 MG TABLET PO SCH ×2 (08:46→16:02)
[2020-10-26] MEDS: LORazepam 2 MG TABLET PO PRN (11:51)
[2020-10-26 12:15] LABS: GLUCOMETER DEV NAME(LOC) 3E.I 2; GLUCOSE,POINT OF CARE 105 MG/DL (70-110)
[2020-10-26 16:27] VITALS: BP 121/71
[2020-10-26 16:56] LABS: GLUCOMETER DEV NAME(LOC) 3EX.; GLUCOSE,POINT OF CARE 121 MG/DL (70-110)
[2020-10-26] MEDS: TraZODone HCL 50 MG TABLET PO SCH (20:29)
[2020-10-26 20:51] LABS: GLUCOMETER DEV NAME(LOC) 3EX.; GLUCOSE,POINT OF CARE 105 MG/DL (70-110)
[2020-10-27 06:14] LABS: GLUCOMETER DEV NAME(LOC) 3EX.; GLUCOSE,POINT OF CARE 142 MG/DL (70-110)
[2020-10-27] MEDS: LEVOTHYROXINE SODIUM 100 MCG TABLET PO SCH (06:27)
[2020-10-27 08:59] VITALS: BP 147/88
[2020-10-27] MEDS: FLUoxetine HCL 20 MG CAPSULE PO SCH (09:46)
[2020-10-27] MEDS: ROSUVASTATIN CALCIUM 20 MG TABLET PO SCH (09:46)
[2020-10-27] MEDS: LORazepam 2 MG TABLET PO PRN (09:46)
[2020-10-27] MEDS: GABAPENTIN 300 MG CAPSULE PO SCH ×3 (09:46→16:07)
[2020-10-27] MEDS: MetFORMIN HCL 500 MG TABLET PO SCH ×2 (09:47→16:07)
[2020-10-27] MEDS: DIVALPROEX SODIUM 500 MG ER TABLET PO SCH ×2 (09:47→20:03)
[2020-10-27] MEDS: MULTIVITAMINS WITH MINERALS, THERAPEUTIC TABLET PO SCH (09:47)
[2020-10-27 09:54] VITALS: BP 128/74
[2020-10-27] MEDS: IBUPROFEN 400 MG TABLET PO PRN (09:54)
[2020-10-27] MEDS: BuPROPion HCL XL 150 MG ER TABLET PO SCH (10:32)
[2020-10-27 10:54] VITALS: BP 156/109
[2020-10-27 11:56] LABS: GLUCOMETER DEV NAME(LOC) 3E.I 2; GLUCOSE,POINT OF CARE 120 MG/DL (70-110)
[2020-10-27 16:19] VITALS: BP 136/87
[2020-10-27 16:58] LABS: GLUCOMETER DEV NAME(LOC) 3EX.; GLUCOSE,POINT OF CARE 128 MG/DL (70-110)
[2020-10-27] MEDS: TraZODone HCL 50 MG TABLET PO SCH (20:03)
[2020-10-27] MEDS: INSULIN LISPRO 100 UNITS/ML SQ PRN (20:43)
[2020-10-27 20:49] LABS: GLUCOMETER DEV NAME(LOC) 3EX.; GLUCOSE,POINT OF CARE 142 MG/DL (70-110)
[2020-10-27] MEDS: ZOLPIDEM TARTRATE 10 MG TABLET PO PRN (22:07)
[2020-10-28 00:30] VITALS: BP 141/86
[2020-10-28] MEDS: HALOPERIDOL 5 MG TABLET PO PRN (00:32)
[2020-10-28] MEDS: LORazepam 2 MG TABLET PO PRN ×2 (00:32→10:27)
[2020-10-28 05:54] LABS: GLUCOMETER DEV NAME(LOC) 3EX.; GLUCOSE,POINT OF CARE 99 MG/DL (70-110)
[2020-10-28] MEDS: LEVOTHYROXINE SODIUM 100 MCG TABLET PO SCH (06:27)
[2020-10-28] MEDS: GABAPENTIN 300 MG CAPSULE PO SCH ×3 (08:12→16:41)
[2020-10-28] MEDS: BuPROPion HCL XL 150 MG ER TABLET PO SCH (08:12)
[2020-10-28] MEDS: FLUoxetine HCL 20 MG CAPSULE PO SCH (08:12)
[2020-10-28] MEDS: ROSUVASTATIN CALCIUM 20 MG TABLET PO SCH (08:12)
[2020-10-28] MEDS: MetFORMIN HCL 500 MG TABLET PO SCH ×2 (08:12→16:41)
[2020-10-28] MEDS: MULTIVITAMINS WITH MINERALS, THERAPEUTIC TABLET PO SCH (08:12)
[2020-10-28] MEDS: DIVALPROEX SODIUM 500 MG ER TABLET PO SCH ×2 (08:12→20:58)
[2020-10-28 08:53] VITALS: BP 113/75
[2020-10-28 11:13] LABS: GLUCOMETER DEV NAME(LOC) 3E.I 2; GLUCOSE,POINT OF CARE 82 MG/DL (70-110)
[2020-10-28] MEDS: INSULIN LISPRO 100 UNITS/ML SQ PRN ×3 (11:24→20:57)
[2020-10-28 16:00] VITALS: BP 143/77
[2020-10-28 16:52] LABS: GLUCOMETER DEV NAME(LOC) 3E.I 2; GLUCOSE,POINT OF CARE 135 MG/DL (70-110)
[2020-10-28] MEDS: TraZODone HCL 50 MG TABLET PO SCH (20:58)
[2020-10-28] MEDS: ZOLPIDEM TARTRATE 10 MG TABLET PO PRN (21:01)
[2020-10-28 21:07] LABS: GLUCOMETER DEV NAME(LOC) 3E.I 2; GLUCOSE,POINT OF CARE 187 MG/DL (70-110)
[2020-10-29 03:25] VITALS: BP 111/69
[2020-10-29] MEDS: LORazepam 2 MG TABLET PO PRN ×4 (03:26→23:58)
[2020-10-29] MEDS: LEVOTHYROXINE SODIUM 100 MCG TABLET PO SCH (06:39)
[2020-10-29 06:49] LABS: GLUCOMETER DEV NAME(LOC) 3E.I 2; GLUCOSE,POINT OF CARE 99 MG/DL (70-110)
[2020-10-29 08:51] VITALS: BP 138/84
[2020-10-29] MEDS: DIVALPROEX SODIUM 500 MG ER TABLET PO SCH ×2 (09:02→20:34)
[2020-10-29] MEDS: BuPROPion HCL XL 150 MG ER TABLET PO SCH (09:02)
[2020-10-29] MEDS: FLUoxetine HCL 20 MG CAPSULE PO SCH (09:02)
[2020-10-29] MEDS: MULTIVITAMINS WITH MINERALS, THERAPEUTIC TABLET PO SCH (09:02)
[2020-10-29] MEDS: ROSUVASTATIN CALCIUM 20 MG TABLET PO SCH (09:02)
[2020-10-29] MEDS: GABAPENTIN 300 MG CAPSULE PO SCH ×3 (09:02→16:34)
[2020-10-29] MEDS: MetFORMIN HCL 500 MG TABLET PO SCH ×2 (09:02→17:31)
[2020-10-29 11:27] LABS: GLUCOMETER DEV NAME(LOC) 3E.I 2; GLUCOSE,POINT OF CARE 169 MG/DL (70-110)
[2020-10-29] MEDS: INSULIN LISPRO 100 UNITS/ML SQ PRN ×2 (11:51→20:46)
[2020-10-29 16:45] LABS: GLUCOMETER DEV NAME(LOC) 3E.I 2; GLUCOSE,POINT OF CARE 129 MG/DL (70-110)
[2020-10-29 18:02] VITALS: BP 111/70
[2020-10-29] MEDS: ZOLPIDEM TARTRATE 10 MG TABLET PO PRN (20:35)
[2020-10-29] MEDS: TraZODone HCL 50 MG TABLET PO SCH (20:38)
[2020-10-29 21:57] LABS: GLUCOMETER DEV NAME(LOC) 3E.I 2; GLUCOSE,POINT OF CARE 179 MG/DL (70-110)
[2020-10-30 06:14] LABS: GLUCOMETER DEV NAME(LOC) 3E.I 2; GLUCOSE,POINT OF CARE 118 MG/DL (70-110)
[2020-10-30] MEDS: LEVOTHYROXINE SODIUM 100 MCG TABLET PO SCH (06:35)
[2020-10-30] MEDS: INSULIN LISPRO 100 UNITS/ML SQ PRN ×2 (06:36→20:33)
[2020-10-30 08:56] VITALS: BP 106/78
[2020-10-30] MEDS: GABAPENTIN 300 MG CAPSULE PO SCH ×3 (09:03→16:14)
[2020-10-30] MEDS: MetFORMIN HCL 500 MG TABLET PO SCH ×2 (09:03→17:09)
[2020-10-30] MEDS: MULTIVITAMINS WITH MINERALS, THERAPEUTIC TABLET PO SCH (09:03)
[2020-10-30] MEDS: ROSUVASTATIN CALCIUM 20 MG TABLET PO SCH (09:03)
[2020-10-30] MEDS: DIVALPROEX SODIUM 500 MG ER TABLET PO SCH ×2 (09:03→20:16)
[2020-10-30] MEDS: FLUoxetine HCL 20 MG CAPSULE PO SCH (09:03)
[2020-10-30] MEDS: BuPROPion HCL XL 150 MG ER TABLET PO SCH (09:03)
[2020-10-30 11:43] LABS: GLUCOMETER DEV NAME(LOC) 3E.I 2; GLUCOSE,POINT OF CARE 88 MG/DL (70-110)
[2020-10-30 14:15] VITALS: BP 114/57
[2020-10-30] MEDS: IBUPROFEN 400 MG TABLET PO PRN (14:16)
[2020-10-30] MEDS: LORazepam 2 MG TABLET PO PRN (14:17)
[2020-10-30 15:16] VITALS: BP 116/77
[2020-10-30 16:00] VITALS: BP 107/69
[2020-10-30 16:45] LABS: GLUCOMETER DEV NAME(LOC) 3E.I 2; GLUCOSE,POINT OF CARE 132 MG/DL (70-110)
[2020-10-30] MEDS: TraZODone HCL 50 MG TABLET PO SCH (20:16)
[2020-10-30 20:26] LABS: GLUCOMETER DEV NAME(LOC) 3E.I 2; GLUCOSE,POINT OF CARE 178 MG/DL (70-110)
[2020-10-30] MEDS: ZOLPIDEM TARTRATE 10 MG TABLET PO PRN (21:15)
[2020-10-31] VITALS: BP 115/69
[2020-10-31] MEDS: LEVOTHYROXINE SODIUM 100 MCG TABLET PO SCH (06:42)
[2020-10-31 06:45] LABS: GLUCOMETER DEV NAME(LOC) 3E.I 2; GLUCOSE,POINT OF CARE 131 MG/DL (70-110)
[2020-10-31] MEDS: GABAPENTIN 300 MG CAPSULE PO SCH ×3 (08:06→16:26)
[2020-10-31] MEDS: BuPROPion HCL XL 150 MG ER TABLET PO SCH (08:06)
[2020-10-31] MEDS: MetFORMIN HCL 500 MG TABLET PO SCH ×2 (08:06→17:13)
[2020-10-31] MEDS: MULTIVITAMINS WITH MINERALS, THERAPEUTIC TABLET PO SCH (08:06)
[2020-10-31] MEDS: ROSUVASTATIN CALCIUM 20 MG TABLET PO SCH (08:06)
[2020-10-31] MEDS: DIVALPROEX SODIUM 500 MG ER TABLET PO SCH ×2 (08:06→20:23)
[2020-10-31] MEDS: FLUoxetine HCL 20 MG CAPSULE PO SCH (08:06)
[2020-10-31 10:08] VITALS: BP 119/83
[2020-10-31 11:39] LABS: GLUCOMETER DEV NAME(LOC) 3E.I 2; GLUCOSE,POINT OF CARE 88 MG/DL (70-110)
[2020-10-31] MEDS: INSULIN LISPRO 100 UNITS/ML SQ PRN (11:41)
[2020-10-31] MEDS: HALOPERIDOL 5 MG TABLET PO PRN (14:58)
[2020-10-31] MEDS: LORazepam 1 MG TABLET PO PRN (14:58)
[2020-10-31 16:00] VITALS: BP 114/65
[2020-10-31] MEDS: SULFAMETHOX/TRIMETH DS 800-160 MG/TABLET PO SCH (16:26)
[2020-10-31 16:43] LABS: GLUCOMETER DEV NAME(LOC) 3E.I 2; GLUCOSE,POINT OF CARE 126 MG/DL (70-110)
[2020-10-31] MEDS: TraZODone HCL 50 MG TABLET PO SCH (20:23)
[2020-10-31 20:36] LABS: GLUCOMETER DEV NAME(LOC) 3E.I 2; GLUCOSE,POINT OF CARE 140 MG/DL (70-110)
[2020-11-01] MEDS: LEVOTHYROXINE SODIUM 100 MCG TABLET PO SCH (06:17)
[2020-11-01 06:50] LABS: GLUCOMETER DEV NAME(LOC) 3E.I 2; GLUCOSE,POINT OF CARE 70 MG/DL (70-110)
[2020-11-01] MEDS: GABAPENTIN 300 MG CAPSULE PO SCH ×3 (09:15→16:26)
[2020-11-01] MEDS: BuPROPion HCL XL 150 MG ER TABLET PO SCH (09:15)
[2020-11-01] MEDS: SULFAMETHOX/TRIMETH DS 800-160 MG/TABLET PO SCH ×2 (09:15→16:25)
[2020-11-01] MEDS: ROSUVASTATIN CALCIUM 20 MG TABLET PO SCH (09:15)
[2020-11-01] MEDS: DIVALPROEX SODIUM 500 MG ER TABLET PO SCH ×2 (09:15→20:33)
[2020-11-01] MEDS: MetFORMIN HCL 500 MG TABLET PO SCH ×2 (09:15→16:26)
[2020-11-01] MEDS: FLUoxetine HCL 20 MG CAPSULE PO SCH (09:15)
[2020-11-01] MEDS: MULTIVITAMINS WITH MINERALS, THERAPEUTIC TABLET PO SCH (09:15)
[2020-11-01] MEDS: LORazepam 1 MG TABLET PO PRN (09:23)
[2020-11-01 09:37] VITALS: BP 138/89
[2020-11-01 11:25] LABS: GLUCOMETER DEV NAME(LOC) 3E.I 2; GLUCOSE,POINT OF CARE 124 MG/DL (70-110)
[2020-11-01 14:33] LABS: COVID AG,FIA SOURCE NASOPHARYNGEAL
[2020-11-01 16:00] VITALS: BP 127/70
[2020-11-01 16:31] LABS: GLUCOMETER DEV NAME(LOC) 3E.I 2; GLUCOSE,POINT OF CARE 165 MG/DL (70-110)
[2020-11-01] MEDS: INSULIN LISPRO 100 UNITS/ML SQ PRN ×2 (16:34→20:35)
[2020-11-01] MEDS: TraZODone HCL 50 MG TABLET PO SCH (20:33)
[2020-11-01 20:37] LABS: GLUCOMETER DEV NAME(LOC) 3E.I 2; GLUCOSE,POINT OF CARE 193 MG/DL (70-110)
[2020-11-02] MEDS: LORazepam 1 MG TABLET PO PRN ×2 (01:16→08:38)
[2020-11-02] MEDS: ZOLPIDEM TARTRATE 10 MG TABLET PO PRN (01:16)
[2020-11-02 05:39] LABS: GLUCOMETER DEV NAME(LOC) 3E.I 2; GLUCOSE,POINT OF CARE 165 MG/DL (70-110)
[2020-11-02] MEDS: LEVOTHYROXINE SODIUM 100 MCG TABLET PO SCH (06:17)
[2020-11-02] MEDS: INSULIN LISPRO 100 UNITS/ML SQ PRN ×2 (06:38→11:28)
[2020-11-02 08:00] VITALS: BP 132/72
[2020-11-02] MEDS: MetFORMIN HCL 500 MG TABLET PO SCH (08:32)
[2020-11-02] MEDS: BuPROPion HCL XL 150 MG ER TABLET PO SCH (08:32)
[2020-11-02] MEDS: GABAPENTIN 300 MG CAPSULE PO SCH ×2 (08:32→13:06)
[2020-11-02] MEDS: ROSUVASTATIN CALCIUM 20 MG TABLET PO SCH (08:32)
[2020-11-02] MEDS: SULFAMETHOX/TRIMETH DS 800-160 MG/TABLET PO SCH (08:32)
[2020-11-02] MEDS: DIVALPROEX SODIUM 500 MG ER TABLET PO SCH (08:32)
[2020-11-02] MEDS: FLUoxetine HCL 20 MG CAPSULE PO SCH (08:32)
[2020-11-02] MEDS: MULTIVITAMINS WITH MINERALS, THERAPEUTIC TABLET PO SCH (08:33)
[2020-11-02 11:21] LABS: GLUCOMETER DEV NAME(LOC) 3E.I 2; GLUCOSE,POINT OF CARE 166 MG/DL (70-110)
[2020-11-02] MEDS ORDERED: SULF1TAB42 PO (13:29)
[2020-11-02] MEDS ORDERED: BUPR-93 PO (13:29)
[2020-11-02 14:23] LABS: GLUCOMETER DEV NAME(LOC) 3E.I 2; GLUCOSE,POINT OF CARE 134 MG/DL (70-110)
== END 2020-11-02 15:10 | disposition home or self-care (01) | DRG 750 ==
LOC: EMS 22:44 → 3EI 10-20 12:35 → 3EX 10-22 22:18 → 3EI 10-28 12:04
DX: F25.0 Schizoaffective disorder, bipolar type (principal); E11.9 Type 2 diabetes mellitus without complications; E78.00 Pure hypercholesterolemia, unspecified; I10 Essential (primary) hypertension; Z20.822 Contact with and (suspected) exposure to COVID-19; T43.212A Poisoning by selective serotonin and norepinephrine reuptake inhibitors, intentional self-harm, initial encounter; F10.10 Alcohol abuse, uncomplicated; M10.9 Gout, unspecified; K21.9 Gastro-esophageal reflux disease without esophagitis; M19.90 Unspecified osteoarthritis, unspecified site; G47.33 Obstructive sleep apnea (adult) (pediatric); E78.5 Hyperlipidemia, unspecified; E03.9 Hypothyroidism, unspecified; J45.909 Unspecified asthma, uncomplicated; M54.9 Dorsalgia, unspecified; G89.29 Other chronic pain; Z59.0 Homelessness; Y92.89 Other specified places as the place of occurrence of the external cause
CPT/HCPCS: 80307; 82948; 83036; 83605; 84443; 87426; 93005; 94660; G0378; G0480; G0481; J7030

== ENCOUNTER 2020-12-20 19:36 | Inpatient (IN) | payer MEDICAID, OTHER ==
[~2020-12-20] VITALS: Ht 167.6 cm; Wt 105.1 kg
[~2020-12-20 19:36] MED LIST changes: +BUPR-93 PO; -CILO2.5OS OS; +SULF1TAB42 PO
[2020-12-20 20:06] LABS: GLUCOSE,POINT OF CARE 121 MG/DL (70-110)
[2020-12-20 20:47] LABS: GLUCOSE,POINT OF CARE 99 MG/DL (70-110)
[2020-12-20 21:28] LABS: BASOPHILS % (AUTO) 0.6 % (0.0-2.0); EOSINOPHILS % (AUTO) 0.4 % (1.0-6.0); HEMATOCRIT 46.8 % (41-53); HEMOGLOBIN 15.8 g/dL (13.5-17.5); LYMPHOCYTES # (AUTO) 3.8 K/uL (1.0-4.8); MEAN CORPUSCULAR HEMOGLOBIN 29.8 pg (26.0-34.0); MEAN CORPUSCULAR HGB CONC 33.7 G/dL (31.0-37.0); MEAN CORPUSCULAR VOLUME 88 fL (80-100); MONOCYTES # (AUTO) 0.8 K/uL (0.1-1.0); MONOCYTES % (AUTO) 7.8 % (2.0-9.0); NEUTROPHILS # (AUTO) 5.5 K/uL (1.8-7.7); NEUTROPHILS % (AUTO) 54.2 % (40.0-70.0); PLATELET COUNT (AUTO) 229 K/uL (150-450); RED CELL DISTRIBUTION WIDTH 15.8 % (11.5-14.5)
[2020-12-20 21:38] LABS: ANION GAP 14 mmol/L (8-16); CALCIUM, TOTAL 9.6 mg/dL (8.8-10.5); CARBON DIOXIDE 25 mmol/L (22-29); CHLORIDE 102 mmol/L (98-107); CREATININE 1.47 mg/dL (0.60-1.30); GLOMERULAR FILTR. RATE CALC 51 mL/min (>60); GLUCOSE,RANDOM 105 mg/dL (70-110); POTASSIUM 3.9 mmol/L (3.5-5.1); SODIUM SERUM 141 mmol/L (136-145); UREA NITROGEN, BLOOD 22 mg/dL (7-18)
[2020-12-20 21:44] LABS: ALANINE AMINOTRANSFERASE 29 U/L (12-78); ALBUMIN 4.1 g/dL (3.4-5.0); ALKALINE PHOSPHATASE 99 U/L (46-116); ASPARTATE AMINOTRANSFERASE 22 U/L (15-37); BILIRUBIN,TOTAL 1.6 mg/dL (0.1-1.0); TOTAL PROTEIN, SERUM 7.8 g/dL (6.4-8.2)
[2020-12-20 21:45] LABS: ACETAMINOPHEN < 2 mcg/mL (10-30)
[2020-12-20 21:49] LABS: SALICYLATE 0.2 mg/dL (2.8-20.0)
[2020-12-20 22:09] LABS: GLUCOSE,POINT OF CARE 99 MG/DL (70-110)
[2020-12-20 23:00] LABS: COVID AG,FIA SOURCE NASOPHARYNGEAL
[2020-12-20 23:29] LABS: GLUCOSE,POINT OF CARE 89 MG/DL (70-110)
[2020-12-20] MEDS ORDERED: LORazepam 2 MG TABLET PO ONE (23:30)
[2020-12-21] MEDS ORDERED: ZOLPIDEM TARTRATE 10 MG TABLET PO PRN (00:15)
[2020-12-21 01:43] LABS: APPEARANCE,URINE CLEAR (CLEAR); GLUCOSE, URINE (UA) NEGATIVE (NEGATIVE); KETONES,URINE TRACE mg/dL (NEGATIVE); LEUKOCYTE ESTERASE ,URINE TRACE (NEGATIVE); NITRATE,URINE NEGATIVE (NEGATIVE); OCCULT BLOOD,URINE NEGATIVE (NEGATIVE); PROTEIN,URINE TRACE (NEGATIVE)
[2020-12-21] MEDS ORDERED: ACETAMINOPHEN 325 MG TABLET PO ONE (01:45)
[2020-12-21 01:48] LABS: AMPHET/METH SCREEN,URINE POSITIVE (NEGATIVE); BARBITURATE SCREEN, URINE NEGATIVE (NEGATIVE); BENZODIAZEPINES SCREEN,URINE NEGATIVE (NEGATIVE); CANNABINOID SCREEN,URINE NEGATIVE (NEGATIVE); COCAINE SCREEN,URINE NEGATIVE (NEGATIVE); METHADONE SCREEN, URINE NEGATIVE (NEGATIVE); OPIATE SCREEN,URINE NEGATIVE (NEGATIVE)
[2020-12-21 01:49] LABS: GLUCOSE,POINT OF CARE 83 MG/DL (70-110)
[2020-12-21 01:50] LABS: BILIRUBIN,URINE PRELIM. POSITIVE (NEGATIVE)
[2020-12-21 02:06] LABS: BACTERIA,URINE None Seen /HPF (None Seen); MUCUS,URINE Few LPF (None Seen); RBC,URINE None Seen /HPF (0-2); SQUAMOUS EPITHELIAL CELL,UR Rare /LPF (None Seen); WBC,URINE 0-2 /HPF (0-5)
[2020-12-21 02:12] LABS: PHENCYCLIDINE SCREEN,URINE NEGATIVE (NEGATIVE)
[2020-12-21] MEDS ORDERED: CloNIDine HCL 0.1 MG TABLET PO PRN (07:45)
[2020-12-21] MEDS ORDERED: NICOTINE 14 MG/24 HOUR PATCH TD PRN (07:45)
[2020-12-21] MEDS ORDERED: PETROLATUM,WHITE 28 GM JELLY TP PRN (07:45)
[2020-12-21] MEDS ORDERED: GuaiFENesin/D-METHORPHAN [SUGAR-FREE] 200-20MG/10 ML SYRUP UDCUP PO PRN (07:45)
[2020-12-21] MEDS ORDERED: ACETAMINOPHEN 325 MG TABLET PO PRN (07:45)
[2020-12-21] MEDS ORDERED: DOCUSATE SODIUM 100 MG CAPSULE PO PRN (07:45)
[2020-12-21] MEDS ORDERED: ALBUTEROL SULFATE HFA 90 MCG/PUFF 8 GM INHALER IH PRN (07:45)
[2020-12-21] MEDS ORDERED: LOPERAMIDE HCL 2 MG CAPSULE PO PRN (07:45)
[2020-12-21] MEDS ORDERED: ONDANSETRON HCL 4 MG TABLET PO PRN (07:45)
[2020-12-21] MEDS ORDERED: MAG HYDROX/AL HYDROX/SIMETH ES 30 ML SUSPENSION UDCUP PO PRN (07:45)
[2020-12-21] MEDS ORDERED: MAGNESIUM HYDROXIDE SUSPENSION 30 ML UDCUP PO PRN (07:45)
[2020-12-21 08:20] VITALS: BP 118/88
[2020-12-21] MEDS: ROSUVASTATIN CALCIUM 20 MG TABLET PO SCH (10:51)
[2020-12-21 16:31] VITALS: BP 110/56
[2020-12-21] MEDS: FLUoxetine HCL 20 MG CAPSULE PO SCH (17:44)
[2020-12-21] MEDS: LORazepam 2 MG TABLET PO PRN (17:44)
[2020-12-21] MEDS: HALOPERIDOL 5 MG TABLET PO PRN (17:44)
[2020-12-21] MEDS: MetFORMIN HCL 500 MG TABLET PO SCH (17:46)
[2020-12-21] MEDS: TraZODone HCL 50 MG TABLET PO SCH (21:31)
[2020-12-21] MEDS: DIVALPROEX SODIUM 500 MG ER TABLET PO SCH (21:32)
[2020-12-21 21:45] LABS: GLUCOMETER DEV NAME(LOC) 3E.I 2; GLUCOSE,POINT OF CARE 202 MG/DL (70-110)
[2020-12-22 05:51] LABS: GLUCOMETER DEV NAME(LOC) 3E.I 2; GLUCOSE,POINT OF CARE 98 MG/DL (70-110)
[2020-12-22] MEDS: LEVOTHYROXINE SODIUM 100 MCG TABLET PO SCH (06:41)
[2020-12-22] MEDS: MetFORMIN HCL 500 MG TABLET PO SCH ×2 (06:42→16:50)
[2020-12-22 07:00] LABS: CHOL/HDL RATIO 4.7 (4.2-7.3)
[2020-12-22] MEDS: DIVALPROEX SODIUM 500 MG ER TABLET PO SCH ×2 (08:11→20:47)
[2020-12-22] MEDS: ROSUVASTATIN CALCIUM 20 MG TABLET PO SCH (08:11)
[2020-12-22] MEDS: FLUoxetine HCL 20 MG CAPSULE PO SCH (08:11)
[2020-12-22 09:55] VITALS: BP 130/78
[2020-12-22 16:57] LABS: GLUCOMETER DEV NAME(LOC) 3E.I 2; GLUCOSE,POINT OF CARE 116 MG/DL (70-110)
[2020-12-22 17:05] VITALS: BP 107/65
[2020-12-22] MEDS: HALOPERIDOL 5 MG TABLET PO PRN (17:57)
[2020-12-22] MEDS: LORazepam 2 MG TABLET PO PRN (17:57)
[2020-12-22] MEDS: TraZODone HCL 50 MG TABLET PO SCH (20:47)
[2020-12-22 21:04] LABS: GLUCOMETER DEV NAME(LOC) 3E.I 2; GLUCOSE,POINT OF CARE 130 MG/DL (70-110)
[2020-12-23 05:47] LABS: GLUCOMETER DEV NAME(LOC) 3E.I 2; GLUCOSE,POINT OF CARE 98 MG/DL (70-110)
[2020-12-23] MEDS: LEVOTHYROXINE SODIUM 100 MCG TABLET PO SCH (06:51)
[2020-12-23] MEDS: MetFORMIN HCL 500 MG TABLET PO SCH ×2 (06:52→17:35)
[2020-12-23] MEDS: FLUoxetine HCL 20 MG CAPSULE PO SCH (08:14)
[2020-12-23] MEDS: ROSUVASTATIN CALCIUM 20 MG TABLET PO SCH (08:14)
[2020-12-23] MEDS: DIVALPROEX SODIUM 500 MG ER TABLET PO SCH ×2 (08:15→21:01)
[2020-12-23 08:57] VITALS: BP 128/82
[2020-12-23 11:23] LABS: GLUCOMETER DEV NAME(LOC) 3E.I 2; GLUCOSE,POINT OF CARE 110 MG/DL (70-110)
[2020-12-23 16:00] VITALS: BP 124/61
[2020-12-23 16:36] LABS: GLUCOMETER DEV NAME(LOC) 3E.I 2; GLUCOSE,POINT OF CARE 120 MG/DL (70-110)
[2020-12-23] MEDS: LORazepam 2 MG TABLET PO PRN (17:44)
[2020-12-23] MEDS: TraZODone HCL 50 MG TABLET PO SCH (21:01)
[2020-12-23 21:40] LABS: GLUCOMETER DEV NAME(LOC) 3E.I 2; GLUCOSE,POINT OF CARE 100 MG/DL (70-110)
[2020-12-24 06:13] LABS: BASOPHILS % (AUTO) 0.6 % (0.0-2.0); EOSINOPHILS % (AUTO) 1.5 % (1.0-6.0); HEMATOCRIT 45.9 % (41-53); HEMOGLOBIN 15.8 g/dL (13.5-17.5); LYMPHOCYTES # (AUTO) 4.8 K/uL (1.0-4.8); LYMPHOCYTES % (AUTO) 46.2 % (22.0-44.0); MEAN CORPUSCULAR HEMOGLOBIN 29.9 pg (26.0-34.0); MEAN CORPUSCULAR HGB CONC 34.5 G/dL (31.0-37.0); MEAN CORPUSCULAR VOLUME 87 fL (80-100); MONOCYTES # (AUTO) 0.7 K/uL (0.1-1.0); MONOCYTES % (AUTO) 6.7 % (2.0-9.0); NEUTROPHILS # (AUTO) 4.6 K/uL (1.8-7.7); PLATELET COUNT (AUTO) 202 K/uL (150-450); RED BLOOD CELL COUNT(AUTO) 5.29 MIL/uL (4.50-5.90); RED CELL DISTRIBUTION WIDTH 15.4 % (11.5-14.5)
[2020-12-24 06:19] LABS: GLUCOMETER DEV NAME(LOC) 3E.I 2; GLUCOSE,POINT OF CARE 153 MG/DL (70-110)
[2020-12-24] MEDS: LEVOTHYROXINE SODIUM 100 MCG TABLET PO SCH (06:49)
[2020-12-24] MEDS: MetFORMIN HCL 500 MG TABLET PO SCH ×2 (06:50→16:54)
[2020-12-24 06:51] LABS: ANION GAP 8 mmol/L (8-16); CALCIUM, TOTAL 9.4 mg/dL (8.8-10.5); CARBON DIOXIDE 27 mmol/L (22-29); CHLORIDE 103 mmol/L (98-107); CREATININE 1.17 mg/dL (0.60-1.30); GLOMERULAR FILTR. RATE CALC > 60 mL/min (>60); GLUCOSE,RANDOM 123 mg/dL (70-110); POTASSIUM 4.1 mmol/L (3.5-5.1); SODIUM SERUM 138 mmol/L (136-145); UREA NITROGEN, BLOOD 24 mg/dL (7-18)
[2020-12-24 08:30] VITALS: BP 114/83
[2020-12-24] MEDS: FLUoxetine HCL 20 MG CAPSULE PO SCH (09:15)
[2020-12-24] MEDS: DIVALPROEX SODIUM 500 MG ER TABLET PO SCH ×2 (09:16→20:46)
[2020-12-24] MEDS: ROSUVASTATIN CALCIUM 20 MG TABLET PO SCH (09:16)
[2020-12-24 11:19] LABS: GLUCOMETER DEV NAME(LOC) 3E.I 2; GLUCOSE,POINT OF CARE 136 MG/DL (70-110)
[2020-12-24 16:00] VITALS: BP 95/58
[2020-12-24 17:08] LABS: GLUCOMETER DEV NAME(LOC) 3E.I 2; GLUCOSE,POINT OF CARE 104 MG/DL (70-110)
[2020-12-24] MEDS: TraZODone HCL 50 MG TABLET PO SCH (20:46)
[2020-12-24 21:03] LABS: GLUCOMETER DEV NAME(LOC) 3E.I 2; GLUCOSE,POINT OF CARE 109 MG/DL (70-110)
[2020-12-25 06:36] LABS: GLUCOMETER DEV NAME(LOC) 3E.I 2; GLUCOSE,POINT OF CARE 113 MG/DL (70-110)
[2020-12-25] MEDS: MetFORMIN HCL 500 MG TABLET PO SCH ×2 (06:46→16:56)
[2020-12-25] MEDS: LEVOTHYROXINE SODIUM 100 MCG TABLET PO SCH (06:46)
[2020-12-25 08:33] VITALS: BP 95/61
[2020-12-25] MEDS: FLUoxetine HCL 20 MG CAPSULE PO SCH (09:10)
[2020-12-25] MEDS: DIVALPROEX SODIUM 500 MG ER TABLET PO SCH ×2 (09:10→21:31)
[2020-12-25] MEDS: ROSUVASTATIN CALCIUM 20 MG TABLET PO SCH (09:10)
[2020-12-25 11:37] LABS: GLUCOMETER DEV NAME(LOC) 3E.I 2; GLUCOSE,POINT OF CARE 122 MG/DL (70-110)
[2020-12-25 16:00] VITALS: BP 128/77
[2020-12-25 16:34] LABS: GLUCOMETER DEV NAME(LOC) 3E.I 2; GLUCOSE,POINT OF CARE 153 MG/DL (70-110)
[2020-12-25 21:27] LABS: GLUCOMETER DEV NAME(LOC) 3E.I 2; GLUCOSE,POINT OF CARE 155 MG/DL (70-110)
[2020-12-25] MEDS: TraZODone HCL 50 MG TABLET PO SCH (21:31)
[2020-12-26 03:30] VITALS: BP 126/85
[2020-12-26] MEDS: LORazepam 2 MG TABLET PO PRN (03:36)
[2020-12-26 05:25] LABS: GLUCOMETER DEV NAME(LOC) 3E.I 2; GLUCOSE,POINT OF CARE 131 MG/DL (70-110)
[2020-12-26] MEDS: MetFORMIN HCL 500 MG TABLET PO SCH ×2 (06:43→17:23)
[2020-12-26] MEDS: LEVOTHYROXINE SODIUM 100 MCG TABLET PO SCH (06:43)
[2020-12-26] MEDS: ROSUVASTATIN CALCIUM 20 MG TABLET PO SCH (08:56)
[2020-12-26] MEDS: DIVALPROEX SODIUM 500 MG ER TABLET PO SCH ×2 (08:56→20:55)
[2020-12-26] MEDS: FLUoxetine HCL 20 MG CAPSULE PO SCH (08:56)
[2020-12-26 11:44] LABS: GLUCOMETER DEV NAME(LOC) 3E.I 2; GLUCOSE,POINT OF CARE 115 MG/DL (70-110)
[2020-12-26 13:37] VITALS: BP 99/68
[2020-12-26 16:00] VITALS: BP 111/73
[2020-12-26 17:37] LABS: GLUCOMETER DEV NAME(LOC) 3E.I 2; GLUCOSE,POINT OF CARE 98 MG/DL (70-110)
[2020-12-26 17:41] LABS: COVID AG,FIA SOURCE NASAL SWAB
[2020-12-26] MEDS: TraZODone HCL 50 MG TABLET PO SCH (20:55)
[2020-12-26 21:24] LABS: GLUCOMETER DEV NAME(LOC) 3E.I 2; GLUCOSE,POINT OF CARE 133 MG/DL (70-110)
[2020-12-27 05:28] LABS: GLUCOMETER DEV NAME(LOC) 3E.I 2; GLUCOSE,POINT OF CARE 119 MG/DL (70-110)
[2020-12-27] MEDS: MetFORMIN HCL 500 MG TABLET PO SCH ×2 (06:36→16:56)
[2020-12-27] MEDS: LEVOTHYROXINE SODIUM 100 MCG TABLET PO SCH (06:36)
[2020-12-27 08:00] VITALS: BP 111/60
[2020-12-27] MEDS: FLUoxetine HCL 20 MG CAPSULE PO SCH (08:26)
[2020-12-27] MEDS: LORazepam 2 MG TABLET PO PRN (08:26)
[2020-12-27] MEDS: ROSUVASTATIN CALCIUM 20 MG TABLET PO SCH (08:27)
[2020-12-27] MEDS: DIVALPROEX SODIUM 250 MG DR TABLET PO SCH ×2 (08:28→20:34)
[2020-12-27 11:15] LABS: GLUCOMETER DEV NAME(LOC) 3E.I 2; GLUCOSE,POINT OF CARE 110 MG/DL (70-110)
[2020-12-27 16:00] VITALS: BP 99/64
[2020-12-27 17:33] LABS: GLUCOMETER DEV NAME(LOC) 3E.I 2; GLUCOSE,POINT OF CARE 132 MG/DL (70-110)
[2020-12-27 19:36] VITALS: BP 108/64
[2020-12-27] MEDS: TraZODone HCL 50 MG TABLET PO SCH (20:34)
[2020-12-27 21:16] LABS: GLUCOMETER DEV NAME(LOC) 3E.I 2; GLUCOSE,POINT OF CARE 141 MG/DL (70-110)
[2020-12-27 22:30] VITALS: BP 108/64
[2020-12-28 05:42] LABS: GLUCOMETER DEV NAME(LOC) 3E.I 2; GLUCOSE,POINT OF CARE 119 MG/DL (70-110)
[2020-12-28] MEDS: MetFORMIN HCL 500 MG TABLET PO SCH ×2 (06:38→17:36)
[2020-12-28] MEDS: LEVOTHYROXINE SODIUM 100 MCG TABLET PO SCH (06:38)
[2020-12-28 10:09] VITALS: BP 118/88
[2020-12-28] MEDS: FLUoxetine HCL 20 MG CAPSULE PO SCH (10:11)
[2020-12-28] MEDS: IBUPROFEN 400 MG TABLET PO PRN (10:11)
[2020-12-28] MEDS: ROSUVASTATIN CALCIUM 20 MG TABLET PO SCH (10:11)
[2020-12-28] MEDS: DIVALPROEX SODIUM 250 MG DR TABLET PO SCH ×2 (10:11→20:24)
[2020-12-28 11:56] LABS: GLUCOMETER DEV NAME(LOC) 3E.I 2; GLUCOSE,POINT OF CARE 175 MG/DL (70-110)
[2020-12-28 16:00] VITALS: BP 128/70
[2020-12-28 17:12] LABS: GLUCOMETER DEV NAME(LOC) 3E.I 2; GLUCOSE,POINT OF CARE 206 MG/DL (70-110)
[2020-12-28] MEDS: TraZODone HCL 50 MG TABLET PO SCH (20:25)
[2020-12-28 21:02] LABS: GLUCOMETER DEV NAME(LOC) 3E.I 2; GLUCOSE,POINT OF CARE 144 MG/DL (70-110)
[2020-12-29 06:28] LABS: GLUCOMETER DEV NAME(LOC) 3E.I 2; GLUCOSE,POINT OF CARE 179 MG/DL (70-110)
[2020-12-29] MEDS: MetFORMIN HCL 500 MG TABLET PO SCH (07:11)
[2020-12-29] MEDS: LEVOTHYROXINE SODIUM 100 MCG TABLET PO SCH (07:11)
[2020-12-29 08:21] VITALS: BP 117/68
[2020-12-29] MEDS: DIVALPROEX SODIUM 250 MG DR TABLET PO SCH (08:34)
[2020-12-29] MEDS: FLUoxetine HCL 20 MG CAPSULE PO SCH (08:34)
[2020-12-29] MEDS: ROSUVASTATIN CALCIUM 20 MG TABLET PO SCH (08:35)
[2020-12-29] MEDS: LORazepam 2 MG TABLET PO PRN (09:33)
[2020-12-29] MEDS: IBUPROFEN 400 MG TABLET PO PRN (09:33)
[2020-12-29 11:37] LABS: GLUCOMETER DEV NAME(LOC) 3E.I 2; GLUCOSE,POINT OF CARE 145 MG/DL (70-110)
== END 2020-12-29 15:05 | disposition home or self-care (01) | DRG 750 ==
LOC: EMS 19:36 → 3EI 12-21 00:09
DX: F25.0 Schizoaffective disorder, bipolar type (principal); E03.9 Hypothyroidism, unspecified; E11.9 Type 2 diabetes mellitus without complications; E78.00 Pure hypercholesterolemia, unspecified; E78.5 Hyperlipidemia, unspecified; F41.1 Generalized anxiety disorder; G47.33 Obstructive sleep apnea (adult) (pediatric); T38.3X2A Poisoning by insulin and oral hypoglycemic [antidiabetic] drugs, intentional self-harm, initial encounter; G89.29 Other chronic pain; K21.9 Gastro-esophageal reflux disease without esophagitis; I11.9 Hypertensive heart disease without heart failure; F15.10 Other stimulant abuse, uncomplicated; M10.9 Gout, unspecified; M19.90 Unspecified osteoarthritis, unspecified site; F17.210 Nicotine dependence, cigarettes, uncomplicated; M54.9 Dorsalgia, unspecified; J45.909 Unspecified asthma, uncomplicated; F32.9 Major depressive disorder, single episode, unspecified; Z20.822 Contact with and (suspected) exposure to COVID-19; N17.9 Acute kidney failure, unspecified; R45.851 Suicidal ideations; Z91.5 Personal history of self-harm; Y92.89 Other specified places as the place of occurrence of the external cause; Z59.0 Homelessness; Z79.4 Long term (current) use of insulin; Z79.899 Other long term (current) drug therapy; Z71.6 Tobacco abuse counseling
CPT/HCPCS: 82948; 83036; 87426; 99285; G0480; G0481

== ENCOUNTER 2021-03-16 22:06 | Emergency (ER) | payer OTHER ==
[~2021-03-16] VITALS: Ht 167.6 cm; Wt 113.6 kg
[~2021-03-16 22:06] MED LIST changes: -BUPR-93 PO; -GABA-1181 PO; -MULT-1239 PO; -ROSU20TA23 PO; +ROSU20TA73 PO; -SULF1TAB42 PO
[2021-03-16 22:41] LABS: GLUCOSE,POINT OF CARE 361 MG/DL (70-110)
[2021-03-17] MEDS ORDERED: ALBUTEROL SULFATE 5 MG/ML 20 ML NEB SOLN [BULK] NEB ONE
[2021-03-17] MEDS ORDERED: INSULIN REGULAR, HUMAN 100 UNITS/ML IVP ONE
[2021-03-17] MEDS ORDERED: 0.9% SODIUM CHLORIDE 5 ML NEB SOLUTION NEB ONE (00:29)
[2021-03-17 01:16] LABS: COVID AG,FIA SOURCE NASOPHARYNGEAL
[2021-03-17 02:00] VITALS: BP 141/86
[2021-03-17 02:47] LABS: GLUCOSE,POINT OF CARE 245 MG/DL (70-110)
== END 2021-03-17 02:00 | disposition home or self-care (01) ==
LOC: EMS 22:08
DX: J40 Bronchitis, not specified as acute or chronic (principal); E11.9 Type 2 diabetes mellitus without complications; I11.9 Hypertensive heart disease without heart failure; E78.00 Pure hypercholesterolemia, unspecified; F17.210 Nicotine dependence, cigarettes, uncomplicated; F19.90 Other psychoactive substance use, unspecified, uncomplicated; Z20.822 Contact with and (suspected) exposure to COVID-19; Z79.84 Long term (current) use of oral hypoglycemic drugs
CPT/HCPCS: 71045; 82962; 87426; 93005; 94640; 96374; 99285; J1815; 82948; J7611

== ENCOUNTER 2021-07-30 12:25 | Emergency (ER) | payer OTHER ==
[~2021-07-30] VITALS: Ht 167.6 cm; Wt 127.3 kg
[2021-07-30 14:31] LABS: COVID AG,FIA SOURCE NASAL SWAB
[2021-07-30 14:48] LABS: BASOPHILS % (AUTO) 0.5 % (0.0-2.0); EOSINOPHILS % (AUTO) 2.7 % (1.0-6.0); HEMATOCRIT 44.4 % (41-53); LYMPHOCYTES # (AUTO) 0.8 K/uL (1.0-4.8); LYMPHOCYTES % (AUTO) 10.4 % (22.0-44.0); MEAN CORPUSCULAR HEMOGLOBIN 28.5 pg (26.0-34.0); MEAN CORPUSCULAR HGB CONC 33.7 G/dL (31.0-37.0); MEAN CORPUSCULAR VOLUME 84 fL (80-100); MONOCYTES # (AUTO) 0.4 K/uL (0.1-1.0); MONOCYTES % (AUTO) 4.9 % (2.0-9.0); NEUTROPHILS # (AUTO) 6.2 K/uL (1.8-7.7); NEUTROPHILS % (AUTO) 81.5 % (40.0-70.0); PLATELET COUNT (AUTO) 143 K/uL (150-450); RED BLOOD CELL COUNT(AUTO) 5.26 MIL/uL (4.50-5.90); RED CELL DISTRIBUTION WIDTH 14.3 % (11.5-14.5)
[2021-07-30 14:49] LABS: ANION GAP 9 mmol/L (8-16); CALCIUM, TOTAL 7.9 mg/dL (8.8-10.5); CARBON DIOXIDE 24 mmol/L (22-29); CHLORIDE 102 mmol/L (98-107); CREATININE 1.12 mg/dL (0.60-1.30); GLOMERULAR FILTR. RATE CALC > 60 mL/min (>60); GLUCOSE,RANDOM 304 mg/dL (70-110); POTASSIUM 5.1 mmol/L (3.5-5.1); SODIUM SERUM 135 mmol/L (136-145); UREA NITROGEN, BLOOD 20 mg/dL (7-18)
[2021-07-30 14:55] LABS: ALANINE AMINOTRANSFERASE 48 U/L (12-78); ALBUMIN 3.1 g/dL (3.4-5.0); ALKALINE PHOSPHATASE 144 U/L (46-116); ASPARTATE AMINOTRANSFERASE 28 U/L (15-37); LIPASE 118 U/L (73-393); TOTAL PROTEIN, SERUM 6.2 g/dL (6.4-8.2)
[2021-07-30 15:27] LABS: INFLUENZA TYPE A NEGATIVE FOR TYPE A (NEGATIVE); INFLUENZA TYPE B NEGATIVE FOR TYPE B (NEGATIVE)
[2021-07-30] MEDS ORDERED: GuaiFENesin [SUGAR-FREE] 200 MG/10 ML SOLUTION UDCUP PO ONE (15:30)
[2021-07-30 16:23] VITALS: BP 128/78
== END 2021-07-30 16:37 | disposition home or self-care (01) ==
LOC: EMS 12:30
DX: B34.9 Viral infection, unspecified (principal); J45.909 Unspecified asthma, uncomplicated; F31.9 Bipolar disorder, unspecified; E11.9 Type 2 diabetes mellitus without complications; I11.9 Hypertensive heart disease without heart failure; E78.00 Pure hypercholesterolemia, unspecified; F17.210 Nicotine dependence, cigarettes, uncomplicated; F19.90 Other psychoactive substance use, unspecified, uncomplicated; Z20.822 Contact with and (suspected) exposure to COVID-19; Z79.84 Long term (current) use of oral hypoglycemic drugs
CPT/HCPCS: 71045; 80053; 83690; 84484; 85025; 87804; 93005; 99285; 36415-L1; 36415-TC